=== PATIENT | female | born 2000 | race Caucasian/White ===

== ENCOUNTER 2024-07-07 14:48 | Emergency (ER) | payer BC ==
[~2024-07-07] VITALS: Ht 180.3 cm; Wt 188.6 kg
[2024-07-07] MEDS: ondansetron 4mg rapidly disintigrating tab PO ONE (16:39)
[2024-07-07] MEDS ORDERED: ONDA-245 PO (17:15)
[2024-07-07 17:22] VITALS: BP 134/78; PULSE 86; RESP 16; TEMP 98.2; O2SAT 97
== END 2024-07-07 17:24 | disposition home or self-care (01) ==
LOC: ER 14:48
DX: R11.2 Nausea with vomiting, unspecified (principal); R19.7 Diarrhea, unspecified; R50.9 Fever, unspecified; R10.84 Generalized abdominal pain
CPT/HCPCS: 99282; 99283